=== PATIENT | female | born 2005 | race Caucasian/White ===

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

== ENCOUNTER → 2023-08-06 | Outpatient (CLI) | payer OTHER ==
[2023-08-06 16:59] LABS: BASOPHILS ABSOLUTE AUTO 0.07 K/mm3 (0.00-0.23); BASOPHILS PERCENT AUTO 1 % (0-2); EOSINOPHILS ABSOLUTE AUTO 0.08 K/mm3 (0.00-0.68); EOSINOPHILS PERCENT AUTO 1 % (0-6); Hematocrit 41.1 % (33.0-51.0); Hemoglobin 13.8 g/dL (11.5-16.0); IMMATURE GRAN ABSOLUTE AUTO 0.01 K/mm3 (0.00-0.10); IMMATURE GRAN PERCENT AUTO 0 % (0-1); LYMPHOCYTES ABSOLUTE AUTO 2.37 K/mm3 (0.84-5.20); LYMPHOCYTES PERCENT AUTO 35 % (21-46); MONOCYTES PERCENT AUTO 7 % (4-13); Mean Corpuscular HGB 29.2 pg (26.0-34.0); Mean Corpuscular HGB Conc 33.6 g/dL (31.5-36.5); Mean Corpuscular Volume 87 fL (80-100); Mean Platelet Volume 11.3 fL (9.1-12.4); NEUTROPHILS ABSOLUTE AUTO 3.75 K/mm3 (1.96-9.15); NEUTROPHILS PERCENT AUTO 55 % (41-73); Platelet Count 230 K/mm3 (150-400); RDW Coefficient Variation 12.7 % (11.7-14.2); RDW Standard Deviation 40.4 fL (35.1-46.3); Red Blood Cell Count 4.72 M/mm3 (3.80-5.20); White Blood Cell Count 6.78 K/mm3 (4.00-11.30)
[2023-08-06 17:10] LABS: Bun/Creatinine Ratio 15.6 (12.0-20.0); Calcium, Blood 8.6 mg/dL (8.5-10.1); Creatinine, Blood 0.64 mg/dL (0.40-1.00); Free Thyroxine 0.92 ng/dL (0.70-1.60); Thyroid Stimulating Hormone 1.304 uIU/mL (0.360-4.800)
== END ==
LOC: LAB 16:46 → LAB SHORT 16:46
PROVIDERS: Physician Assistant
DX: R00.0 Tachycardia, unspecified (principal)
CPT/HCPCS: 80048; 84439; 84443; 84481; 85025

== ENCOUNTER → 2023-08-06 | Outpatient (CLI) | payer OTHER | LOC: LAB 16:39 → LAB SHORT 16:39 | DX: N39.0 Urinary tract infection, site not specified (principal) | CPT/HCPCS: 87086 ==

== ENCOUNTER → 2024-08-21 | Outpatient (CLI) | payer OTHER | END | disposition home or self-care (01) | LOC: LAB 17:01 → LAB SHORT 17:01 | DX: O09.892 Supervision of other high risk pregnancies, second trimester (principal) | CPT/HCPCS: 87081; 87150 ==

== ENCOUNTER 2024-09-18 12:40 | Inpatient (IN) | payer OTHER ==
[~2024-09-18] VITALS: Ht 167.6 cm; Wt 99.5 kg
[2024-09-18] VITALS (16 sets, daily range): BP systolic 97–123; BP diastolic 54–76
[~2024-09-18 12:40] MED LIST changes: +Citric Acid/Sodium Citrate 30 ML BTL PO SCH; +Clindamycin 900mg in D5W 50ML 50 ML IV SCH; +GENTAMICIN SULFATE IV SCH; +Lactated Ringer's 1,000 ML IV SCH; +Metoclopramide HCl 5MG / ML 2ML Vial IV ONE; +NS IV SCH
[2024-09-18 13:44] LABS: BASOPHILS ABSOLUTE AUTO 0.05 K/mm3 (0.00-0.23); BASOPHILS PERCENT AUTO 1 % (0-2); EOSINOPHILS ABSOLUTE AUTO 0.06 K/mm3 (0.00-0.68); EOSINOPHILS PERCENT AUTO 1 % (0-6); Hemoglobin 10.5 g/dL (11.5-16.0); IMMATURE GRAN ABSOLUTE AUTO 0.05 K/mm3 (0.00-0.10); IMMATURE GRAN PERCENT AUTO 1 % (0-1); LYMPHOCYTES ABSOLUTE AUTO 1.91 K/mm3 (0.84-5.20); LYMPHOCYTES PERCENT AUTO 24 % (21-46); MONOCYTES ABSOLUTE AUTO 0.49 K/mm3 (0.16-1.47); MONOCYTES PERCENT AUTO 6 % (4-13); Mean Corpuscular HGB 27.6 pg (26.0-34.0); Mean Corpuscular HGB Conc 31.8 g/dL (31.5-36.5); Mean Corpuscular Volume 87 fL (80-100); Mean Platelet Volume 11.3 fL (9.1-12.4); NEUTROPHILS ABSOLUTE AUTO 5.57 K/mm3 (1.96-9.15); NEUTROPHILS PERCENT AUTO 69 % (41-73); Platelet Count 156 K/mm3 (150-400); RDW Coefficient Variation 13.3 % (11.7-14.2); RDW Standard Deviation 41.3 fL (35.1-46.3); Red Blood Cell Count 3.81 M/mm3 (3.80-5.20); White Blood Cell Count 8.13 K/mm3 (4.00-11.30)
[2024-09-18] MEDS ORDERED: Albuterol 2.5 MG/3 ML VIAL INH PRN (15:10)
[2024-09-18] MEDS ORDERED: Morphine Sulfate 4 MG/1 ML Injection IV PRN (15:10)
[2024-09-18] MEDS ORDERED: FentaNYL Citrate 50 MCG/ML 2 ML Injection IV PRN (15:10)
[2024-09-18] MEDS ORDERED: Oxytocin 10 Unit / ML Vial ONE (15:11)
[2024-09-18] MEDS ORDERED: Ondansetron HCl 2 MG / ML 2ML Vial IV PRN ×2 (15:15→17:00)
[2024-09-18] MEDS ORDERED: Prochlorperazine Edisylate 10 mg Vial IV PRN (15:15)
[2024-09-18] MEDS ORDERED: HYDROmorphone HCl/Pf 1MG SYR IV PRN ×2 (15:15→19:35)
[2024-09-18] MEDS ORDERED: Meperidine HCl 50 MG/ML 1ML Injection IV PRN (15:25)
[2024-09-18] MEDS ORDERED: Lidocaine HCl 2% 10 ML SDA ONE (15:38)
[2024-09-18] MEDS ORDERED: ePHEDrine Sulfate 50 MG/ML 1ML Injection ONE (15:39)
[2024-09-18] MEDS ORDERED: Phenylephrine HCl 100 MCG/ML-NS 10MLSYR (1MG/10ML) ONE (15:41)
[2024-09-18] MEDS ORDERED: Methylergonovine Maleate 0.2MG / ML 1ML Amp ONE ×2 (15:59→16:00)
[2024-09-18] MEDS ORDERED: FentaNYL Citrate 50 MCG/ML 2 ML Injection ONE (16:11)
[2024-09-18] MEDS ORDERED: DiphenhydrAMINE HCl 50 MG/ML 1ML Vial ONE (16:13)
[2024-09-18] MEDS ORDERED: Ketorolac Tromethamine 30mg Vial ONE (16:13)
[2024-09-18] MEDS ORDERED: Ondansetron HCl 2 MG / ML 2ML Vial ONE (16:14)
--- NOTE | 2024-09-18 16:17 | NUR ---
09/18/24 1617 Dee Donohue BABY GIRL BORN BY REPEAT C/S BORN AT 1553. PROVIDER DECLINED TO SEND CORD GASES AT THIS TIME. CORE BLOOD SENT WITH RN. NO APGARS ASSIGNED AT THIS TIME. NB IN [facility] FOR ADDITIONAL RESPIRATORY SUPPORT. PT HAD BILATERAL SALPINGECTOMY SUCCESFULLY, BOTH TUBES SENT IN SAME SPECIAMIN BAG, ALL COUNTS CORRECT,
[2024-09-18] MEDS ORDERED: Rho(D) Immune Globulin 300 MCG / SYR IM SCH (16:50)
[2024-09-18] MEDS ORDERED: Measles/Mumps/Rubella Vaccine 0.5 ML Vial SC SCH (16:50)
[2024-09-18] MEDS ORDERED: Magnesium Hydroxide Conc 10 ML UDC PO PRN (16:50)
[2024-09-18] MEDS ORDERED: Metoclopramide HCl 10 MG Tab PO PRN (16:50)
[2024-09-18] MEDS ORDERED: Simethicone 80 MG Chew PO PRN (16:50)
[2024-09-18] MEDS ORDERED: DiphenhydrAMINE HCL 25 MG Cap PO PRN (16:50)
[2024-09-18] MEDS ORDERED: Sennosides 8.6 MG Tab PO PRN (16:50)
[2024-09-18] MEDS ORDERED: Diphth,Pertuss(Acell),Tet Vac 0.5 ML VIAL IM SCH (16:55)
[2024-09-18] MEDS ORDERED: OxyCODONE HCL 5 MG TAB PO PRN ×2 (16:55→17:00)
[2024-09-18] MEDS ORDERED: Polyethylene Glycol 3350 17 gm PO SCH (17:00)
[2024-09-18] MEDS ORDERED: Promethazine HCl 25 MG Tab PO PRN (17:00)
[2024-09-18] MEDS ORDERED: Lanolin Cream TOP PRN (17:00)
[2024-09-18] MEDS ORDERED: Ketorolac Tromethamine 30mg Vial IV SCH (17:00)
[2024-09-18] MEDS ORDERED: Acetaminophen 500 MG Tab PO PRN (19:35)
--- NOTE | 2024-09-18 22:25 | NUR ---
PARENTS INTO SEE TO BABY IN NURSERY. MOTHER UP TO BATHROOM, ABLE TO VOID AFTER CATHETER REMOVED.
[2024-09-19] VITALS (7 sets, daily range): BP systolic 102–200; BP diastolic 55–71
[2024-09-19] MEDS ORDERED: Ibuprofen 400 MG Tab PO SCH
[2024-09-19 06:16] LABS: BASOPHILS ABSOLUTE AUTO 0.03 K/mm3 (0.00-0.23); BASOPHILS PERCENT AUTO 0 % (0-2); EOSINOPHILS PERCENT AUTO 0 % (0-6); Hemoglobin 9.9 g/dL (11.5-16.0); IMMATURE GRAN ABSOLUTE AUTO 0.07 K/mm3 (0.00-0.10); IMMATURE GRAN PERCENT AUTO 0 % (0-1); LYMPHOCYTES ABSOLUTE AUTO 1.58 K/mm3 (0.84-5.20); LYMPHOCYTES PERCENT AUTO 10 % (21-46); MONOCYTES ABSOLUTE AUTO 1.11 K/mm3 (0.16-1.47); MONOCYTES PERCENT AUTO 7 % (4-13); Mean Corpuscular HGB 27.6 pg (26.0-34.0); Mean Corpuscular HGB Conc 31.9 g/dL (31.5-36.5); Mean Corpuscular Volume 86 fL (80-100); Mean Platelet Volume 11.6 fL (9.1-12.4); NEUTROPHILS ABSOLUTE AUTO 13.43 K/mm3 (1.96-9.15); NEUTROPHILS PERCENT AUTO 83 % (41-73); Platelet Count 174 K/mm3 (150-400); RDW Coefficient Variation 13.1 % (11.7-14.2); RDW Standard Deviation 40.5 fL (35.1-46.3); Red Blood Cell Count 3.59 M/mm3 (3.80-5.20); White Blood Cell Count 16.22 K/mm3 (4.00-11.30)
[2024-09-19] MEDS ORDERED: Methylergonovine Maleate 0.2MG / ML 1ML Amp IM ONE (07:25)
[2024-09-19] MEDS ORDERED: Prenatal Vit/FE Fumarate/FA 1 Tab PO SCH (09:00)
[2024-09-19] MEDS ORDERED: NAPR500 PO (09:38)
[2024-09-19] MEDS ORDERED: DOCU100 PO (09:40)
[2024-09-19] MEDS ORDERED: OXAYDO5 M1 PO (09:40)
--- NOTE | 2024-09-19 11:11 | NUR ---
HAVE CHECKED ON PT A FEW TIME, REPORTS DOING WELL, PAIN IS GOOD, PT IS DOING POSITION CHANGES TO HELP WITH THE GAS PAIN IN HER SHOULDERS. SCRIPTS WERE SENT BY DR SOTELO THRU [facility]. PT HAS FAMILY THAT WILL PICK THEM UP TODAYL PT IS AWARE THAT PHARMACYS WILL NOT BE OPEN TOMORROW
[2024-09-19] MEDS ORDERED: Naproxen 500 MG Tab PO PRN (12:00)
--- NOTE | 2024-09-19 12:45 | NUR ---
report taken from jennifer pryor. assumed care. mother reports doing well, napping on and off and pain controlled. encouraged to continue with feeds every 2 hours.
[2024-09-19] MEDS ORDERED: Docusate Sodium 100 MG Cap PO SCH (21:00)
[2024-09-20 04:56] VITALS: BP 112/55
[2024-09-20 07:43] VITALS: BP 107/58
== END 2024-09-20 15:30 | disposition home or self-care (01) | DRG 785 ==
LOC: BC 12:40
PROVIDERS: Family Medicine; ADMIT Obstetrics & Gynecology
PROC: 10D00Z1 Extraction of Products of Conception, Low, Open Approach (ICD-10-PCS; principal; 2024-09-18 15:00)
PROC: 0UT70ZZ Resection of Bilateral Fallopian Tubes, Open Approach (ICD-10-PCS; 2024-09-18 15:00)
DX: O34.211 Maternal care for low transverse scar from previous cesarean delivery (principal); O99.02 Anemia complicating childbirth; Z37.0 Single live birth; Z30.2 Encounter for sterilization; Z88.0 Allergy status to penicillin; Z88.8 Allergy status to other drugs, medicaments and biological substances; Z88.1 Allergy status to other antibiotic agents; Z91.041 Radiographic dye allergy status; Z3A.39 39 weeks gestation of pregnancy
CPT/HCPCS: 36415; 85025; 88302; A9270; J1200; J1885; J2003; J2210; J2371; J2405; J2590; J2765; J3010; J7120

== ENCOUNTER 2025-03-24 15:50 | Emergency (ER) | payer OTHER ==
[~2025-03-24] VITALS: Ht 167.6 cm; Wt 83.9 kg
[~2025-03-24 15:50] MED LIST changes: -Citric Acid/Sodium Citrate 30 ML BTL PO SCH; -Clindamycin 900mg in D5W 50ML 50 ML IV SCH; +DOCU100 PO; -GENTAMICIN SULFATE IV SCH; -Lactated Ringer's 1,000 ML IV SCH; -Metoclopramide HCl 5MG / ML 2ML Vial IV ONE; +NAPR500 PO; -NS IV SCH; +OXAYDO5 M1 PO
[2025-03-24 15:57] VITALS: BP 101/66
[2025-03-24] MEDS ORDERED: Ketorolac Tromethamine 30mg Vial IM ONE (16:05)
== END 2025-03-24 22:19 | disposition home or self-care (01) ==
LOC: ER 15:50
DX: S16.1XXA Strain of muscle, fascia and tendon at neck level, initial encounter (principal); M54.6 Pain in thoracic spine; M25.512 Pain in left shoulder; Z88.0 Allergy status to penicillin; Z88.1 Allergy status to other antibiotic agents; Z88.8 Allergy status to other drugs, medicaments and biological substances; Z79.899 Other long term (current) drug therapy; V43.52XA Car driver injured in collision with other type car in traffic accident, initial encounter
CPT/HCPCS: 70450; 72040; 72070; 72125; 96372; 99285-25; A9270; J1885

== ENCOUNTER 2025-08-30 19:30 | Emergency (ER) | payer OTHER ==
[~2025-08-30] VITALS: Ht 167.6 cm; Wt 90.8 kg
[2025-08-30 20:28] LABS: BASOPHILS ABSOLUTE AUTO 0.05 K/mm3 (0.00-0.23); BASOPHILS PERCENT AUTO 1 % (0-2); EOSINOPHILS ABSOLUTE AUTO 0.32 K/mm3 (0.00-0.68); EOSINOPHILS PERCENT AUTO 4 % (0-6); Hematocrit 36.9 % (33.0-51.0); Hemoglobin 12.0 g/dL (11.5-16.0); IMMATURE GRAN ABSOLUTE AUTO 0.02 K/mm3 (0.00-0.10); IMMATURE GRAN PERCENT AUTO 0 % (0-1); LYMPHOCYTES ABSOLUTE AUTO 2.16 K/mm3 (0.84-5.20); LYMPHOCYTES PERCENT AUTO 25 % (21-46); MONOCYTES ABSOLUTE AUTO 0.48 K/mm3 (0.16-1.47); MONOCYTES PERCENT AUTO 6 % (4-13); Mean Corpuscular HGB Conc 32.5 g/dL (31.5-36.5); Mean Corpuscular Volume 85 fL (80-100); NEUTROPHILS ABSOLUTE AUTO 5.70 K/mm3 (1.96-9.15); NEUTROPHILS PERCENT AUTO 65 % (41-73); NRBC ABSOLUTE 0.00 K/mm3 (0.00-0.02); NRBC Auto 0.0 /100 WBC (0.0-0.2); Platelet Count 262 K/mm3 (150-400); RDW Coefficient Variation 12.4 % (11.7-14.2); RDW Standard Deviation 38.9 fL (35.1-46.3)
[2025-08-30 20:52] LABS: Alanine Aminotransfer (ALT/SGP 17.0 U/L (12-78); Albumin, Blood 3.7 g/dL (3.4-5.0); Albumin/Globulin Ratio 1.1 (0.8-1.8); Anion Gap 9.0 mmol/L (3-11); Aspartate Aminotrans (AST/SGOT 11.0 U/L (12-37); Bilirubin, Total 0.1 mg/dL (0.1-1.0); Blood Urea Nitrogen 11.0 mg/dL (8-24); CO2, Blood 24.0 mmol/L (21-32); Calcium, Blood 9.0 mg/dL (8.5-10.1); Chloride, Blood 109.0 mmol/L (98-108); Creatinine, Blood 0.72 mg/dL (0.40-1.00); Globulin, Blood 3.4 g/dL (2.2-4.0); Glucose, Blood 96.0 mg/dL (70-99); Potassium, Blood 3.9 mmol/L (3.5-5.5); Sodium, Blood 138.0 mmol/L (136-145); Total Protein, Blood 7.1 g/dL (6.4-8.2)
[2025-08-30 23:13] VITALS: BP 111/67
== END 2025-08-30 23:13 | disposition home or self-care (01) ==
LOC: ER 19:30
PROVIDERS: Student in an Organized Health Care Education/Training Program
DX: N93.9 Abnormal uterine and vaginal bleeding, unspecified (principal); Z88.0 Allergy status to penicillin; Z88.8 Allergy status to other drugs, medicaments and biological substances; Z79.899 Other long term (current) drug therapy
CPT/HCPCS: 80053; 85025; 86900; 86901; 99283